=== PATIENT | male | born 1970 | race Asian ===

== ENCOUNTER 2021-03-10 08:56 | Inpatient (IN) | payer MEDICAID, OTHER ==
[2021-03-09 15:50] VITALS: BP 126/92
[~2021-03-10] VITALS: Ht 170.2 cm; Wt 100.0 kg
[2021-03-10 09:37] LABS: MEAN CORPUSCULAR HEMOGLOBIN 30.7 pg (27.5-34.5); MEAN CORPUSCULAR HGB CONC 33.5 g/dL (33.2-36.2); MEAN PLATELET VOLUME 7.1 fL (7.4-10.4); PLATELET COUNT 889 x10^3/uL (130-400); RED BLOOD COUNT 4.36 x10^6/uL (4.38-5.82); RED CELL DISTRIBUTION WIDTH 14.7 % (9.4-14.8)
[2021-03-10 09:42] LABS: ALANINE AMINOTRANSFERASE 660 U/L (12-78); ALBUMIN 3.1 g/dL (3.4-5.0); ANION GAP 10 mmol/L (5-15); CALCIUM 9.6 mg/dL (8.5-10.1); CHLORIDE 107 mmol/L (98-107); CREATININE 1.07 mg/dL (0.7-1.3)
[2021-03-10 09:51] LABS: ALKALINE PHOSPHATASE 283 U/L (45-117); BILIRUBIN,TOTAL 1.8 mg/dL (0.2-1.0); TOTAL PROTEIN 8.9 g/dL (6.4-8.2)
[2021-03-10 10:07] LABS: BAND#(MANUAL) 1.05 x10^3/uL; BANDS%(MANUAL) 6 % (0-7); EOS#(MANUAL) 0.53 x10^3/uL (0.0-0.4); EOS% (MANUAL) 3 % (1-7); LYMPH#(MANUAL) 3.33 x10^3/uL (1-3.4); LYMPHS% (MANUAL) 19 % (22-44); MONOS#(MANUAL) 0.35 x10^3/uL (0.3-2.7); MONOS% (MANUAL) 2 % (2-9); SEG#(MANUAL) 12.25 x10^3/uL (1.8-6.8); SEGS% (MANUAL) 70 % (42-75)
[2021-03-10 10:08] LABS: <PLATELET ESTIMATE> INCREASED; <RBC MORPHOLOGY> NORMAL; SMALL PLATELETS 1+
[2021-03-10] MEDS ORDERED: LORazepam 2 MG/ML, 1ML IVPush ONE (10:30)
[2021-03-10] MEDS ORDERED: SODIUM CHLORIDE 0.9% 1,000ML IVBOLUS ONE (10:30)
[2021-03-10] MEDS ORDERED: HYDROmorphone 1 MG/ML, 1ML INJ IV ONE ×2 (10:30→14:30)
[2021-03-10] MEDS ORDERED: ONDANSETRON 2MG/ML, 2ML IVPush ONE (10:30)
[2021-03-10] MEDS ORDERED: SODIUM CHLORIDE FLUSH 10ML SYR IVF ONE (10:30)
--- NOTE | 2021-03-10 10:37 | NUR ---
PT HAS C/O INCREASED PAIN WHILE WAITING IN THE LOBBY. PT WHEELED BACK TO ROOM. PIV STARTED. AWAITING MD KEITA.
[2021-03-10] MEDS ORDERED: HYDROmorphone 2 MG/ML, 1ML ONE ×2 (10:39→14:56)
[2021-03-10] MEDS ORDERED: ONDANSETRON 2MG/ML, 2ML ONE (10:39)
[2021-03-10] MEDS ORDERED: LORazepam 2 MG/ML, 1ML ONE (10:40)
[2021-03-10] MEDS ORDERED: AMLO-211 PO (11:12)
[2021-03-10] MEDS ORDERED: CARV6.2512 PO (11:12)
[2021-03-10] MEDS ORDERED: LISI5TAB7 PO (11:12)
[2021-03-10] MEDS ORDERED: METF500T17 PO (11:12)
[2021-03-10] MEDS ORDERED: KETAMINE 10 MG/ML, 20ML IV ONE (11:15)
[2021-03-10] MEDS ORDERED: OMNIPAQUE 350 MG/ML, 100ML BOTTLE ONE (11:33)
[2021-03-10] MEDS ORDERED: KETAMINE 10 MG/ML, 20ML ONE (11:53)
[2021-03-10 12:27] LABS: MICROSCOPIC INDICATED
[2021-03-10] MEDS ORDERED: MELATONIN 5 MG TABLET PO PRN (18:00)
[2021-03-10] MEDS ORDERED: hydrALAzine 20 MG/ML, 1ML IVPush PRN (18:00)
[2021-03-10] MEDS ORDERED: TRAZODONE 50MG TABLET PO PRN (18:00)
[2021-03-10] MEDS ORDERED: BISACODYL 10 MG SUPP PR PRN (18:00)
[2021-03-10] MEDS ORDERED: ONDANSETRON 2MG/ML, 2ML IVPush PRN (18:00)
[2021-03-10] MEDS ORDERED: ENOXAPARIN 40 MG/0.4 ML SQ SCH (18:00)
[2021-03-10] MEDS ORDERED: ACETAMINOPHEN 325 MG TABLET PO PRN (18:00)
[2021-03-10] MEDS: MORPHINE SULFATE 4 MG/ML, 1ML IVPush PRN ×2 (18:09→23:02)
[2021-03-10] MEDS: LACTATED RINGERS 1,000 ML IV SCH ×2 (18:26→23:01)
[2021-03-10] MEDS ORDERED: LORazepam 2 MG/ML, 1ML IV PRN ×5 (19:00)
[2021-03-10 19:05] LABS: CHOL/HDL RATIO 4.2; LDL/HDL RATIO 2.3 (0.5-3.0)
[2021-03-10 19:06] VITALS: BP 118/83
[2021-03-10] MEDS: ZIPRASIDONE 40MG CAPSULE PO SCH (20:12)
[2021-03-10] MEDS: QUETIAPINE 25MG TABLET PO SCH (20:12)
[2021-03-10] MEDS: CARVEDILOL 6.25 MG TABLET PO SCH (20:13)
[2021-03-10] MEDS: HEPARIN 5,000 UNITS/ML, 1ML SQ SCH (20:14)
[2021-03-10] MEDS ORDERED: FENO150C2 PO (20:22)
[2021-03-10] MEDS ORDERED: ASPI-963 PO (20:22)
[2021-03-10] MEDS ORDERED: QUET50TA5 PO (20:22)
[2021-03-10] MEDS ORDERED: ZIPR40CA2 PO (20:22)
[2021-03-10] MEDS ORDERED: METF10007 PO (20:22)
[2021-03-10] MEDS ORDERED: ROSU5TAB12 PO (20:22)
[2021-03-10] MEDS: PANTOPRAZOLE 40 MG IV IVPush SCH (20:44)
[2021-03-10] MEDS: PIPERACILLIN/TAZO 3.375 GM in DEXTROSE 5% 50 ML IV SCH (20:49)
[2021-03-10] MEDS: LORazepam 2 MG/ML, 1ML IV PRN (21:05)
[2021-03-10] MEDS: INSULIN LISPRO 100 UNITS/ML, PEN SQ-INSULIN SCH (21:06)
[2021-03-11 00:34] VITALS: BP 110/79
[2021-03-11] MEDS: LORazepam 2 MG/ML, 1ML IV PRN (01:13)
[2021-03-11] MEDS: HEPARIN 5,000 UNITS/ML, 1ML SQ SCH ×3 (01:59→18:20)
[2021-03-11] MEDS: MORPHINE SULFATE 4 MG/ML, 1ML IVPush PRN ×4 (02:05→16:03)
[2021-03-11] MEDS: PIPERACILLIN/TAZO 3.375 GM in DEXTROSE 5% 50 ML IV SCH ×4 (03:33→21:44)
[2021-03-11] MEDS: LACTATED RINGERS 1,000 ML IV SCH ×2 (05:10→08:23)
[2021-03-11 05:18] LABS: HCT (SEDRATE) 42.4 % (39.2-51.8)
[2021-03-11 05:23] LABS: CHLORIDE 108 mmol/L (98-107)
[2021-03-11 05:25] LABS: MEAN CORPUSCULAR HGB CONC 33.8 g/dL (33.2-36.2); MEAN PLATELET VOLUME 7.6 fL (7.4-10.4); PLATELET COUNT 641 x10^3/uL (130-400); RED BLOOD COUNT 4.62 x10^6/uL (4.38-5.82); RED CELL DISTRIBUTION WIDTH 14.4 % (9.4-14.8)
[2021-03-11 05:50] LABS: ALANINE AMINOTRANSFERASE 378 U/L (12-78); ALBUMIN 2.7 g/dL (3.4-5.0); ALKALINE PHOSPHATASE 185 U/L (45-117); ANION GAP 11 mmol/L (5-15); BILIRUBIN,TOTAL 1.1 mg/dL (0.2-1.0); CALCIUM 8.6 mg/dL (8.5-10.1); CREATININE 1.01 mg/dL (0.7-1.3); TOTAL PROTEIN 7.5 g/dL (6.4-8.2)
[2021-03-11 06:20] LABS: D-DIMER 14.07 ug/mlFEU (0.00-0.52); INTERNATIONAL NORMALIZED RATIO 1.11 (0.93-1.1); PROTHROMBIN TIME 11.8 Seconds (9.6-11.5)
[2021-03-11] MEDS: INSULIN LISPRO 100 UNITS/ML, PEN SQ-INSULIN SCH ×4 (07:00→21:00)
[2021-03-11 07:05] VITALS: BP 115/84
[2021-03-11 07:17] LABS: <RBC MORPHOLOGY> NORMAL; BAND#(MANUAL) 1.73 x10^3/uL; BANDS%(MANUAL) 12 % (0-7); LYMPH#(MANUAL) 2.45 x10^3/uL (1-3.4); LYMPHS% (MANUAL) 17 % (22-44); MONOS% (MANUAL) 9 % (2-9); SEG#(MANUAL) 8.93 x10^3/uL (1.8-6.8); SEGS% (MANUAL) 62 % (42-75)
[2021-03-11 07:18] LABS: <PLATELET ESTIMATE> INCREASED; <PLT MORPHOLOGY> NORMAL PLT MORPH
[2021-03-11] MEDS ORDERED: OMNIPAQUE 350 MG/ML, 50 ML BOTTLE ONE (07:49)
[2021-03-11] MEDS ORDERED: MIDAZOLAM 1 MG/ML, 2ML ONE (07:56)
[2021-03-11] MEDS ORDERED: FENTANYL PF 100 MCG/2ML ONE (07:56)
[2021-03-11] MEDS ORDERED: CHLORHEXIDINE 15 ML UDC ONE (08:18)
[2021-03-11] MEDS ORDERED: LACTATED RINGERS 1,000 ML IV SCH (08:30)
[2021-03-11] MEDS ORDERED: CHLORHEXIDINE 15 ML UDC PO ONE (08:30)
[2021-03-11] MEDS: PANTOPRAZOLE 40 MG IV IVPush SCH ×2 (09:00→21:44)
[2021-03-11] MEDS: CARVEDILOL 6.25 MG TABLET PO SCH ×2 (09:00→20:17)
[2021-03-11] MEDS: AMLODIPINE 10 MG TAB PO SCH (09:00)
[2021-03-11] MEDS: QUETIAPINE 25MG TABLET PO SCH ×2 (09:00→20:17)
[2021-03-11] MEDS: ZIPRASIDONE 40MG CAPSULE PO SCH ×2 (09:00→20:17)
[2021-03-11] MEDS: FENOFIBRATE 145 MG TABLET PO SCH (09:00)
[2021-03-11 13:13] VITALS: BP 120/91
[2021-03-11] MEDS ORDERED: ACETAMINOPHEN 500 MG TABLET PO PRN (16:00)
[2021-03-11 22:00] VITALS: BP 126/87
[2021-03-12] MEDS: MORPHINE SULFATE 4 MG/ML, 1ML IVPush PRN ×4 (00:04→20:35)
[2021-03-12] MEDS: LACTATED RINGERS 1,000 ML IV SCH ×3 (01:38→16:32)
[2021-03-12 01:55] VITALS: BP 120/79
[2021-03-12] MEDS: PIPERACILLIN/TAZO 3.375 GM in DEXTROSE 5% 50 ML IV SCH ×3 (04:35→20:03)
[2021-03-12] MEDS: HEPARIN 5,000 UNITS/ML, 1ML SQ SCH ×3 (04:36→22:18)
[2021-03-12 05:28] LABS: HCT (SEDRATE) 35.8 % (39.2-51.8)
[2021-03-12 05:41] LABS: MEAN CORPUSCULAR HEMOGLOBIN 30.3 pg (27.5-34.5); MEAN CORPUSCULAR HGB CONC 33.4 g/dL (33.2-36.2); PLATELET COUNT 529 x10^3/uL (130-400); RED BLOOD COUNT 3.88 x10^6/uL (4.38-5.82); RED CELL DISTRIBUTION WIDTH 14.4 % (9.4-14.8)
[2021-03-12 05:45] LABS: CHLORIDE 102 mmol/L (98-107)
[2021-03-12 06:03] LABS: ALANINE AMINOTRANSFERASE 208 U/L (12-78); ALBUMIN 2.2 g/dL (3.4-5.0); ALKALINE PHOSPHATASE 107 U/L (45-117); ANION GAP 5 mmol/L (5-15); BILIRUBIN,TOTAL 1.1 mg/dL (0.2-1.0); CALCIUM 8.4 mg/dL (8.5-10.1); CREATININE 0.65 mg/dL (0.7-1.3); TOTAL PROTEIN 6.5 g/dL (6.4-8.2)
[2021-03-12 06:45] LABS: BAND#(MANUAL) 2.04 x10^3/uL; BANDS%(MANUAL) 15 % (0-7); LYMPH#(MANUAL) 1.36 x10^3/uL (1-3.4); LYMPHS% (MANUAL) 10 % (22-44); METAMYELOCYTES# (MANUAL) 0.14 x10^3/uL (0-0); METAMYELOCYTES% (MANUAL) 1 % (0-1); MONOS#(MANUAL) 1.22 x10^3/uL (0.3-2.7); MONOS% (MANUAL) 9 % (2-9); SEG#(MANUAL) 8.84 x10^3/uL (1.8-6.8); SEGS% (MANUAL) 65 % (42-75)
[2021-03-12 06:46] LABS: <PLATELET ESTIMATE> INCREASED; <PLT MORPHOLOGY> NORMAL PLT MORPH; <RBC MORPHOLOGY> NORMAL
[2021-03-12 07:01] LABS: C-REACTIVE PROTEIN, QUANT > 19.00 mg/dL (0.02-0.49)
[2021-03-12 08:12] VITALS: BP 125/85
[2021-03-12] MEDS: QUETIAPINE 25MG TABLET PO SCH ×2 (08:20→20:32)
[2021-03-12] MEDS: PANTOPRAZOLE 40 MG IV IVPush SCH ×2 (08:21→20:35)
[2021-03-12] MEDS: CARVEDILOL 6.25 MG TABLET PO SCH ×2 (08:21→20:33)
[2021-03-12] MEDS: FENOFIBRATE 145 MG TABLET PO SCH (08:21)
[2021-03-12] MEDS: ZIPRASIDONE 40MG CAPSULE PO SCH ×2 (08:21→20:33)
[2021-03-12] MEDS: AMLODIPINE 10 MG TAB PO SCH (08:21)
[2021-03-12] MEDS: INSULIN LISPRO 100 UNITS/ML, PEN SQ-INSULIN SCH ×4 (08:45→20:08)
[2021-03-12] MEDS: THIAMINE 100 MG in DEXTROSE 5% 50 ML IVPB SCH (08:45)
[2021-03-12 15:34] VITALS: BP 117/80
[2021-03-12] MEDS ORDERED: LACTATED RINGERS 1,000 ML IV SCH (18:00)
[2021-03-12 20:28] VITALS: BP 129/84
[2021-03-13] MEDS: MORPHINE SULFATE 4 MG/ML, 1ML IVPush PRN ×4 (00:19→23:24)
[2021-03-13] MEDS: LACTATED RINGERS 1,000 ML IV SCH ×3 (01:41→16:15)
[2021-03-13] MEDS: PIPERACILLIN/TAZO 3.375 GM in DEXTROSE 5% 50 ML IV SCH ×4 (01:41→20:26)
[2021-03-13 03:00] VITALS: BP 107/75
[2021-03-13 05:32] LABS: MEAN PLATELET VOLUME 7.9 fL (7.4-10.4); PLATELET COUNT 460 x10^3/uL (130-400); RED BLOOD COUNT 3.66 x10^6/uL (4.38-5.82)
[2021-03-13 05:36] LABS: CHLORIDE 99 mmol/L (98-107)
[2021-03-13 05:45] LABS: ALANINE AMINOTRANSFERASE 125 U/L (12-78); ALBUMIN 1.8 g/dL (3.4-5.0); ALKALINE PHOSPHATASE 74 U/L (45-117); ANION GAP 6 mmol/L (5-15); BILIRUBIN,TOTAL 1.1 mg/dL (0.2-1.0); CREATININE 0.63 mg/dL (0.7-1.3); TOTAL PROTEIN 6.3 g/dL (6.4-8.2)
[2021-03-13 06:35] LABS: <PLATELET ESTIMATE> INCREASED; <RBC MORPHOLOGY> NORMAL; BAND#(MANUAL) 2.75 x10^3/uL; BANDS%(MANUAL) 22 % (0-7); LYMPH#(MANUAL) 1.25 x10^3/uL (1-3.4); LYMPHS% (MANUAL) 10 % (22-44); MONOS#(MANUAL) 0.75 x10^3/uL (0.3-2.7); MONOS% (MANUAL) 6 % (2-9); SEG#(MANUAL) 7.75 x10^3/uL (1.8-6.8); SEGS% (MANUAL) 62 % (42-75)
[2021-03-13] MEDS: HEPARIN 5,000 UNITS/ML, 1ML SQ SCH ×3 (06:35→20:23)
[2021-03-13 06:36] LABS: SMALL PLATELETS 1+
[2021-03-13 07:16] VITALS: BP 123/83
[2021-03-13] MEDS: ZIPRASIDONE 40MG CAPSULE PO SCH ×2 (09:00→20:24)
[2021-03-13] MEDS ORDERED: ZIPRASIDONE 20MG CAPSULE ONE (09:09)
[2021-03-13] MEDS: PANTOPRAZOLE 40 MG IV IVPush SCH (09:18)
[2021-03-13] MEDS: QUETIAPINE 25MG TABLET PO SCH ×2 (09:20→20:24)
[2021-03-13] MEDS: THIAMINE 100 MG in DEXTROSE 5% 50 ML IVPB SCH (09:21)
[2021-03-13] MEDS: CARVEDILOL 6.25 MG TABLET PO SCH ×2 (09:21→20:24)
[2021-03-13] MEDS: AMLODIPINE 10 MG TAB PO SCH (09:21)
[2021-03-13] MEDS: FENOFIBRATE 145 MG TABLET PO SCH (09:21)
[2021-03-13] MEDS: INSULIN LISPRO 100 UNITS/ML, PEN SQ-INSULIN SCH ×3 (12:04→20:32)
[2021-03-13 15:13] VITALS: BP 116/86
[2021-03-13] MEDS: PANTOPRAZOLE 40MG TABLET PO SCH (16:15)
[2021-03-13 20:28] VITALS: BP 123/82
[2021-03-13] MEDS ORDERED: POTASSIUM PHOSPHATE 44 MEQ in SODIUM CHLORIDE 0.9% 500 ML IV ONE (21:30)
[2021-03-14 01:46] VITALS: BP 124/82
[2021-03-14] MEDS: PIPERACILLIN/TAZO 3.375 GM in DEXTROSE 5% 50 ML IV SCH ×4 (02:21→20:36)
[2021-03-14 05:13] LABS: MEAN CORPUSCULAR HEMOGLOBIN 30.2 pg (27.5-34.5); MEAN CORPUSCULAR HGB CONC 33.3 g/dL (33.2-36.2); MEAN PLATELET VOLUME 8.1 fL (7.4-10.4); PLATELET COUNT 494 x10^3/uL (130-400); RED BLOOD COUNT 3.68 x10^6/uL (4.38-5.82); RED CELL DISTRIBUTION WIDTH 14.1 % (9.4-14.8)
[2021-03-14] MEDS: HEPARIN 5,000 UNITS/ML, 1ML SQ SCH ×3 (05:13→22:04)
[2021-03-14 05:21] LABS: ANION GAP 11 mmol/L (5-15); CALCIUM 7.7 mg/dL (8.5-10.1); CHLORIDE 97 mmol/L (98-107)
[2021-03-14 05:34] LABS: ALANINE AMINOTRANSFERASE 89 U/L (12-78); ALBUMIN 1.7 g/dL (3.4-5.0); ALKALINE PHOSPHATASE 71 U/L (45-117); TOTAL PROTEIN 6.4 g/dL (6.4-8.2)
[2021-03-14 06:01] LABS: HCT (SEDRATE) 33.5 % (39.2-51.8)
[2021-03-14 06:08] LABS: BAND#(MANUAL) 1.09 x10^3/uL; BANDS%(MANUAL) 8 % (0-7); LYMPH#(MANUAL) 0.68 x10^3/uL (1-3.4); LYMPHS% (MANUAL) 5 % (22-44); MONOS#(MANUAL) 1.22 x10^3/uL (0.3-2.7); MONOS% (MANUAL) 9 % (2-9); SEG#(MANUAL) 10.61 x10^3/uL (1.8-6.8); SEGS% (MANUAL) 78 % (42-75)
[2021-03-14 06:10] LABS: <PLATELET ESTIMATE> INCREASED; <PLT MORPHOLOGY> NORMAL PLT MORPH; <RBC MORPHOLOGY> NORMAL
[2021-03-14 07:30] VITALS: BP 122/82
[2021-03-14] MEDS: PANTOPRAZOLE 40MG TABLET PO SCH ×2 (07:47→16:10)
[2021-03-14] MEDS: INSULIN LISPRO 100 UNITS/ML, PEN SQ-INSULIN SCH ×4 (07:47→20:36)
[2021-03-14] MEDS: FENOFIBRATE 145 MG TABLET PO SCH (08:48)
[2021-03-14] MEDS: AMLODIPINE 10 MG TAB PO SCH (08:48)
[2021-03-14] MEDS: ZIPRASIDONE 40MG CAPSULE PO SCH ×2 (08:48→20:35)
[2021-03-14] MEDS: CARVEDILOL 6.25 MG TABLET PO SCH ×2 (08:48→20:35)
[2021-03-14] MEDS: QUETIAPINE 25MG TABLET PO SCH ×2 (08:48→20:36)
[2021-03-14] MEDS: LACTATED RINGERS 1,000 ML IV SCH ×3 (10:38→23:46)
[2021-03-14] MEDS: THIAMINE 100 MG in DEXTROSE 5% 50 ML IVPB SCH (10:38)
[2021-03-14 13:16] VITALS: BP 129/86
[2021-03-14 19:45] VITALS: BP 120/77
[2021-03-14] MEDS: MORPHINE SULFATE 4 MG/ML, 1ML IVPush PRN (22:04)
[2021-03-15 02:07] VITALS: BP 123/74
[2021-03-15] MEDS: PIPERACILLIN/TAZO 3.375 GM in DEXTROSE 5% 50 ML IV SCH ×4 (02:15→20:32)
[2021-03-15] MEDS: HEPARIN 5,000 UNITS/ML, 1ML SQ SCH ×3 (02:15→22:30)
[2021-03-15] MEDS: INSULIN LISPRO 100 UNITS/ML, PEN SQ-INSULIN SCH ×4 (07:00→20:32)
[2021-03-15] MEDS: LACTATED RINGERS 1,000 ML IV SCH ×2 (07:43→17:34)
[2021-03-15] MEDS: PANTOPRAZOLE 40MG TABLET PO SCH ×2 (07:43→17:00)
[2021-03-15 08:52] VITALS: BP 128/70
[2021-03-15] MEDS: THIAMINE 100 MG in DEXTROSE 5% 50 ML IVPB SCH (09:00)
[2021-03-15] MEDS: CARVEDILOL 6.25 MG TABLET PO SCH ×2 (09:00→20:33)
[2021-03-15] MEDS: FENOFIBRATE 145 MG TABLET PO SCH (09:00)
[2021-03-15] MEDS: AMLODIPINE 10 MG TAB PO SCH (09:00)
[2021-03-15] MEDS: QUETIAPINE 25MG TABLET PO SCH ×2 (09:00→20:33)
[2021-03-15] MEDS: ZIPRASIDONE 40MG CAPSULE PO SCH ×2 (09:00→20:33)
[2021-03-15] MEDS ORDERED: FENTANYL PF 100 MCG/2ML ONE (09:19)
[2021-03-15] MEDS ORDERED: MIDAZOLAM 1 MG/ML, 2ML ONE (09:19)
[2021-03-15] MEDS ORDERED: BUPIVACAINE/PF 0.5% ONE (09:42)
[2021-03-15] MEDS ORDERED: EPINEPHRINE 1 MG/ML, 1ML ONE (09:43)
[2021-03-15] MEDS ORDERED: CHLORHEXIDINE 15 ML UDC ONE (09:48)
[2021-03-15] MEDS ORDERED: FENTANYL PF 100 MCG/2ML IV PRN (10:00)
[2021-03-15] MEDS ORDERED: MEPERIDINE/PF 25MG/0.5ML IVPush PRN (10:00)
[2021-03-15] MEDS ORDERED: PROMETHAZINE 25 MG/ML, 1ML IVPush PRN (10:00)
[2021-03-15] MEDS ORDERED: CHLORHEXIDINE 15 ML UDC PO ONE (10:00)
[2021-03-15] MEDS ORDERED: ONDANSETRON 2MG/ML, 2ML IVPush PRN (10:00)
[2021-03-15] MEDS ORDERED: HYDROcodone/APAP 7.5-325MG/15ML UDC PO PRN (10:00)
[2021-03-15] MEDS ORDERED: OXYcodone 5 MG/5 ML ORAL.SOL UDC PO PRN (10:00)
[2021-03-15] MEDS ORDERED: HYDROmorphone 1 MG/ML, 1ML INJ IVPush PRN (10:00)
[2021-03-15] MEDS ORDERED: SUCCINYLCHOLINE 20 MG/ML, 10ML ONE (10:01)
[2021-03-15] MEDS ORDERED: ROCURONIUM 10MG/ML,5ML ONE (10:01)
[2021-03-15] MEDS ORDERED: DEXAMETHASONE 4 MG/ML, 1ML ONE (10:01)
[2021-03-15] MEDS ORDERED: CEFAZOLIN 1,000 MG ONE (10:01)
[2021-03-15] MEDS ORDERED: PROPOFOL 10 MG/ML, 20ML ONE (10:01)
[2021-03-15] MEDS ORDERED: NEOSTIGMINE 1 MG/ML, 10ML ONE (10:01)
[2021-03-15] MEDS ORDERED: GLYCOPYRROLATE 0.2MG/1ML, 5ML ONE (10:01)
[2021-03-15] MEDS ORDERED: ONDANSETRON 2MG/ML, 2ML ONE (10:01)
[2021-03-15] MEDS ORDERED: SUGAMMADEX 200 MG/2 ML IVPush ONE (11:42)
[2021-03-15] MEDS ORDERED: HYDROcodone/APAP 7.5-325MG/15ML UDC ONE (12:30)
[2021-03-15 13:31] VITALS: BP 112/73
[2021-03-15 18:24] VITALS: BP 114/77
[2021-03-16 00:11] VITALS: BP 118/79
[2021-03-16] MEDS: LACTATED RINGERS 1,000 ML IV SCH ×3 (01:07→23:23)
[2021-03-16] MEDS: PIPERACILLIN/TAZO 3.375 GM in DEXTROSE 5% 50 ML IV SCH ×4 (02:26→23:23)
[2021-03-16] MEDS: MORPHINE SULFATE 4 MG/ML, 1ML IVPush PRN (02:33)
[2021-03-16 04:32] VITALS: BP 118/77
[2021-03-16] MEDS: HEPARIN 5,000 UNITS/ML, 1ML SQ SCH ×3 (04:51→23:21)
[2021-03-16 04:55] LABS: BASOPHILS % (AUTO) 0 % (0-1); EOSINOPHILS % (AUTO) 0 % (1-7); LYMPHOCYTES % (AUTO) 16 % (22-44); MEAN CORPUSCULAR HEMOGLOBIN 30.3 pg (27.5-34.5); MEAN CORPUSCULAR HGB CONC 33.6 g/dL (33.2-36.2); MEAN PLATELET VOLUME 7.5 fL (7.4-10.4); MONOCYTES % (AUTO) 17 % (2-9); NEUTROPHILS % (AUTO) 67 % (42-75); PLATELET COUNT 458 x10^3/uL (130-400); RED BLOOD COUNT 2.89 x10^6/uL (4.38-5.82); RED CELL DISTRIBUTION WIDTH 14.4 % (9.4-14.8)
[2021-03-16 05:03] LABS: ALBUMIN 1.5 g/dL (3.4-5.0); ANION GAP 5 mmol/L (5-15); CALCIUM 7.2 mg/dL (8.5-10.1); CHLORIDE 103 mmol/L (98-107)
[2021-03-16 05:07] LABS: ALANINE AMINOTRANSFERASE 55 U/L (12-78); ALKALINE PHOSPHATASE 63 U/L (45-117); BILIRUBIN,TOTAL 0.5 mg/dL (0.2-1.0); CREATININE 0.46 mg/dL (0.7-1.3); TOTAL PROTEIN 5.7 g/dL (6.4-8.2)
[2021-03-16 07:17] VITALS: BP 114/74
[2021-03-16] MEDS ORDERED: ZIPRASIDONE 20MG CAPSULE ONE (08:14)
[2021-03-16] MEDS: INSULIN LISPRO 100 UNITS/ML, PEN SQ-INSULIN SCH ×4 (08:20→21:00)
[2021-03-16] MEDS: ZIPRASIDONE 40MG CAPSULE PO SCH ×2 (08:20→22:18)
[2021-03-16] MEDS: CARVEDILOL 6.25 MG TABLET PO SCH ×2 (08:22→22:18)
[2021-03-16] MEDS: FENOFIBRATE 145 MG TABLET PO SCH (08:23)
[2021-03-16] MEDS: PANTOPRAZOLE 40MG TABLET PO SCH ×2 (08:23→18:01)
[2021-03-16] MEDS ORDERED: OMNIPAQUE 350 MG/ML, 50 ML BOTTLE ONE (08:46)
[2021-03-16] MEDS ORDERED: ONDANSETRON 2MG/ML, 2ML IVPush PRN (09:00)
[2021-03-16] MEDS ORDERED: OXYcodone 5 MG/5 ML ORAL.SOL UDC PO PRN (09:00)
[2021-03-16] MEDS ORDERED: LABETALOL 5MG/ML, 20ML IV PRN (09:00)
[2021-03-16] MEDS ORDERED: hydrALAzine 20 MG/ML, 1ML IV PRN (09:00)
[2021-03-16] MEDS ORDERED: DIAZEPAM 5 MG/ML, 2ML IVPush PRN (09:00)
[2021-03-16] MEDS ORDERED: HYDROmorphone 1 MG/ML, 1ML INJ IVPush PRN (09:00)
[2021-03-16] MEDS ORDERED: FENTANYL PF 100 MCG/2ML IV PRN (09:00)
[2021-03-16] MEDS: QUETIAPINE 25MG TABLET PO SCH (09:00)
[2021-03-16] MEDS ORDERED: FENTANYL PF 250 MCG/5ML ONE (09:01)
[2021-03-16] MEDS ORDERED: MIDAZOLAM 1 MG/ML, 2ML ONE (09:01)
[2021-03-16] MEDS ORDERED: CHLORHEXIDINE 15 ML UDC ONE (09:17)
[2021-03-16] MEDS ORDERED: SUCCINYLCHOLINE 20 MG/ML, 10ML ONE (09:31)
[2021-03-16] MEDS ORDERED: PROPOFOL 10 MG/ML, 20ML ONE (09:31)
[2021-03-16] MEDS ORDERED: INDOMETHACIN 50 MG SUPP.RECT ONE (10:35)
[2021-03-16] MEDS ORDERED: INDOMETHACIN 50 MG SUPP.RECT PR ONE (11:00)
[2021-03-16] MEDS: THIAMINE 100 MG in DEXTROSE 5% 50 ML IVPB SCH (12:55)
[2021-03-16 15:14] VITALS: BP 127/87
[2021-03-16 19:59] VITALS: BP 121/79
[2021-03-16] MEDS ORDERED: QUETIAPINE 25MG TABLET PO SCH (21:00)
[2021-03-16] MEDS: AMLODIPINE 10 MG TAB PO SCH (22:20)
[2021-03-17 03:59] VITALS: BP 134/85
[2021-03-17] MEDS: PIPERACILLIN/TAZO 3.375 GM in DEXTROSE 5% 50 ML IV SCH (05:06)
[2021-03-17] MEDS: PANTOPRAZOLE 40MG TABLET PO SCH (07:50)
[2021-03-17] MEDS: HEPARIN 5,000 UNITS/ML, 1ML SQ SCH (07:50)
[2021-03-17] MEDS: LACTATED RINGERS 1,000 ML IV SCH (07:53)
[2021-03-17 07:56] VITALS: BP 122/83
[2021-03-17] MEDS ORDERED: ZIPRASIDONE 20MG CAPSULE ONE (08:32)
[2021-03-17] MEDS: CARVEDILOL 6.25 MG TABLET PO SCH (08:36)
[2021-03-17] MEDS: FENOFIBRATE 145 MG TABLET PO SCH (08:36)
[2021-03-17] MEDS: ZIPRASIDONE 40MG CAPSULE PO SCH (08:36)
[2021-03-17] MEDS: INSULIN LISPRO 100 UNITS/ML, PEN SQ-INSULIN SCH (08:36)
[2021-03-17] MEDS ORDERED: THIAMINE 100MG TABLET ONE (09:11)
[2021-03-17] MEDS: AMLODIPINE 10 MG TAB PO SCH (09:12)
[2021-03-18] MEDS ORDERED: THIAMINE 100MG TABLET PO SCH (10:00)
== END 2021-03-17 11:08 | disposition home or self-care (01) | DRG 263 ==
LOC: ED 12:04 → 4NE 15:27
PROVIDERS: ADMIT Family Medicine; ATTEND Family Medicine
PROC: 0FB44ZZ Excision of Gallbladder, Percutaneous Endoscopic Approach (ICD-10-PCS; 2021-03-15)
PROC: 0F9440Z Drainage of Gallbladder with Drainage Device, Percutaneous Endoscopic Approach (ICD-10-PCS; 2021-03-15)
PROC: BF10YZZ Fluoroscopy of Bile Ducts using Other Contrast (ICD-10-PCS; 2021-03-16)
PROC: 0F798DZ Dilation of Common Bile Duct with Intraluminal Device, Via Natural or Artificial Opening Endoscopic (ICD-10-PCS; principal; 2021-03-16 09:30)
DX: K85.20 Alcohol induced acute pancreatitis without necrosis or infection (principal); K80.62 Calculus of gallbladder and bile duct with acute cholecystitis without obstruction; E11.9 Type 2 diabetes mellitus without complications; E78.5 Hyperlipidemia, unspecified; D47.3 Essential (hemorrhagic) thrombocythemia; F12.90 Cannabis use, unspecified, uncomplicated; K86.89 Other specified diseases of pancreas; F17.210 Nicotine dependence, cigarettes, uncomplicated; F20.9 Schizophrenia, unspecified; F32.9 Major depressive disorder, single episode, unspecified; Z20.822 Contact with and (suspected) exposure to COVID-19; I10 Essential (primary) hypertension; Z72.89 Other problems related to lifestyle; Z80.0 Family history of malignant neoplasm of digestive organs; Z82.49 Family history of ischemic heart disease and other diseases of the circulatory system; Z83.3 Family history of diabetes mellitus
CPT/HCPCS: 36415; 74328; 96361; 96374; 96375; 99291; S0020; 71045; 74177; 74181; 76700; 80053; 80061; 81001; 82962; 83036; 83690; 83735; 84100; 84443; 85025; 85379; 85610; 85651; 86140; 87040; 87086; 87635; 88304; 93005; C1729; G0378; J0171; J0690; J1100; J1170; J1644; J2250; J2405; J2543; J2704; J2710; J3010; J3411; Q9967; C1769; C1894; C2625; C9113; J0330; J1815; J2060; J2270; J7030; J7040; J7120